=== PATIENT | male | born 1970 | race Caucasian/White ===

== ENCOUNTER 2016-12-18 22:26 | Emergency (ER) | payer OTHER ==
[~2016-12-18 22:26] MED LIST: ACT15 PO; ACT30 PO; ASPIR 8181 MG PO; ASPIRIN325 MG PO; BACO TOP; BACTROBAN2% TP; CLEOCIN HCL300 MG PO; CLINDAMYCIN HC300 MG PO; COL100 PO; ECONAZOLE NITRATE11 TOP; FLA500 PO; GLU5 PO; GLU500 PO; HIB480 TP; HIBICLENS118 ML TOP; LAC PO; LASIX20 MG; LEVAQUIN750 MG PO; LIPI20 PO; METFORMIN HCL1000 MG PO; METOPROLOL TART25 M1 GT; METOPROLOL TART25 M1 PO; NOR10 PO; NOR10T; NOR10T PO; NORCO1 TA2 PO; PROVENTIL0.09 MG/A1 INH; THERAGRAN-M1 TA4 PO; TRAMADOL HCL50 MG PO; ZES10 PO; ZOC10 PO
[2016-12-18 23:51] VITALS: BP 158/110
== END 2016-12-18 23:51 | disposition home or self-care (01) ==
LOC: ED 22:26
DX: I87.8 Other specified disorders of veins (principal); G89.29 Other chronic pain; J45.909 Unspecified asthma, uncomplicated; I10 Essential (primary) hypertension; E11.9 Type 2 diabetes mellitus without complications; Z88.0 Allergy status to penicillin; Z79.51 Long term (current) use of inhaled steroids

== ENCOUNTER 2017-01-31 22:26 | Emergency (ER) | payer OTHER ==
[2017-02-01 01:18] VITALS: BP 172/93
== END 2017-02-01 01:00 | disposition home or self-care (01) ==
LOC: ED 22:26
DX: J02.0 Streptococcal pharyngitis (principal); I83.018 Varicose veins of right lower extremity with ulcer other part of lower leg; I10 Essential (primary) hypertension; E11.9 Type 2 diabetes mellitus without complications; Z79.84 Long term (current) use of oral hypoglycemic drugs; Z88.0 Allergy status to penicillin
CPT/HCPCS: J1100

== ENCOUNTER 2017-02-07 22:32 | Emergency (ER) | payer OTHER ==
[2017-02-08 01:44] VITALS: BP 183/104
== END 2017-02-08 01:44 | disposition home or self-care (01) ==
LOC: ED 22:32
DX: N47.6 Balanoposthitis (principal); I83.008 Varicose veins of unspecified lower extremity with ulcer other part of lower leg; E66.01 Morbid (severe) obesity due to excess calories; I10 Essential (primary) hypertension; G62.9 Polyneuropathy, unspecified; Z88.0 Allergy status to penicillin

== ENCOUNTER 2017-05-25 20:03 | Emergency (ER) | payer OTHER ==
[~2017-05-25] VITALS: Ht 177.8 cm; Wt 154.2 kg
[2017-05-25 21:25] LABS: BASOPHIL % 0.3 % (0-2); PLATELET COUNT 248 x10^3mcL (130-400); RED CELL DISTRIBUTION WIDTH 14.3 % (11.5-14.5)
[2017-05-25 21:26] LABS: CALCIUM 8.2 mg/dL (8.5-10.1); CARBON DIOXIDE 28.9 mmol/L (21-32); CHLORIDE SERUM 103 mmol/L (98-107); GFR1 > 60 mL/min; GLUCOSE SERUM 210 mg/dL (74-106); POTASSIUM SERUM 3.5 mmol/L (3.5-5.1); SODIUM SERUM 139 mmol/L (136-145)
[2017-05-25 21:31] LABS: ALKALINE PHOSPHATASE 97 U/L (46-116); ALT/SGPT 24 U/L (16-63); AST/SGOT 17 U/L (15-37); BILIRUBIN TOTAL 0.48 mg/dL (0.20-1.00); TOTAL PROTEIN, SERUM 7.7 g/dL (6.4-8.2)
[2017-05-25 21:32] LABS: ALBUMIN 3.3 g/dL (3.4-5.0)
[2017-05-25 22:02] LABS: CK-MB 0.7 ng/mL (0-3.6)
[2017-05-25 23:51] VITALS: BP 159/91
== END 2017-05-25 23:51 | disposition home or self-care (01) ==
LOC: ED 20:03
PROVIDERS: Emergency Medicine
PROC: 3E033NZ Introduction of Analgesics, Hypnotics, Sedatives into Peripheral Vein, Percutaneous Approach (ICD-10-PCS; principal; 2017-05-25)
PROC: 3E033GC Introduction of Other Therapeutic Substance into Peripheral Vein, Percutaneous Approach (ICD-10-PCS; 2017-05-25)
DX: R53.1 Weakness (principal); M79.606 Pain in leg, unspecified
CPT/HCPCS: 83880; J2270; J7030; Q0092

== ENCOUNTER 2017-07-23 13:19 | Inpatient (IN) | payer OTHER ==
[~2017-07-23] VITALS: Ht 200.7 cm; Wt 143.0 kg
[2017-07-23 14:28] LABS: BASOPHIL % 0.2 % (0-2); PLATELET COUNT 297 x10^3mcL (130-400)
[2017-07-23 14:29] LABS: RED CELL DISTRIBUTION WIDTH 14.7 % (11.5-14.5)
[2017-07-23 14:36] LABS: CALCIUM 8.5 mg/dL (8.5-10.1); CARBON DIOXIDE 31.1 mmol/L (21-32); CHLORIDE SERUM 102 mmol/L (98-107); CREATININE SERUM 0.8 mg/dL (0.7-1.3); GFR1 > 60 mL/min; GLUCOSE SERUM 259 mg/dL (74-106); POTASSIUM SERUM 3.5 mmol/L (3.5-5.1); SODIUM SERUM 138 mmol/L (136-145)
[2017-07-23 14:49] LABS: ALKALINE PHOSPHATASE 98 U/L (46-116); ALT/SGPT 24 U/L (16-63); AMYLASE 47 U/L (25-115); AST/SGOT 14 U/L (15-37); BILIRUBIN TOTAL 0.3 mg/dL (0.20-1.00); HDL CHOLESTEROL 36 mg/dL (40-60); LIPASE 169 IU/L (73-393); MAGNESIUM 1.6 mg/dL (1.8-2.4); T4(THYROXINE) 6.6 ug/dL (4.7-13.3); TOTAL PROTEIN, SERUM 7.7 g/dL (6.4-8.2)
[2017-07-23 14:50] LABS: ALBUMIN 2.6 g/dL (3.4-5.0); CHOLESTEROL 116 mg/dL (<200)
[2017-07-23 15:04] LABS: microscopic required? NO
[2017-07-23] MEDS ORDERED: LISINOPRIL2.5 MG (15:08)
[2017-07-23] MEDS ORDERED: INSULIN (15:08)
[2017-07-23] MEDS ORDERED: HYDROCHLOROTHIAZ1 GM (15:08)
[2017-07-23] MEDS ORDERED: METFORMIN HYDR500 M1 (15:08)
[2017-07-23 15:12] LABS: UA SPECIFIC GRAVITY 1.025 (1.005-1.035); urine erythrocyte NEGATIVE (NEGATIVE)
[2017-07-23 15:21] LABS: AMPHETAMINE QUAL UR POSITIVE (NEG <=1000)
[2017-07-23 16:02] LABS: CHOLESTEROL/HDL RATIO 3.2
[2017-07-23 16:05] VITALS: BP 158/90
[2017-07-23 16:10] LABS: FREE T4 1.13 ng/dL (0.76-1.46); FREE THYROXINE INDEX 2.3 ug/dL (1.4-4.5); T4(THYROXINE) 6.8 ug/dL (4.7-13.3)
[2017-07-23 16:11] LABS: T3 TOTAL 0.85 ng/mL
[2017-07-23 17:16] VITALS: Ht 200.7 cm; Wt 143.0 kg
[2017-07-23 21:30] VITALS: BP 150/80
[2017-07-24 05:32] VITALS: BP 153/97
[2017-07-24 05:48] VITALS: BP 139/80
[2017-07-24 06:07] LABS: BASOPHIL % 0.3 % (0-2); PLATELET COUNT 297 x10^3mcL (130-400); RED CELL DISTRIBUTION WIDTH 14.5 % (11.5-14.5)
[2017-07-24 06:39] LABS: CALCIUM 8.8 mg/dL (8.5-10.1); CARBON DIOXIDE 33.9 mmol/L (21-32); CHLORIDE SERUM 103 mmol/L (98-107); CREATININE SERUM 0.7 mg/dL (0.7-1.3); GFR1 > 60 mL/min; GLUCOSE SERUM 157 mg/dL (74-106); MAGNESIUM 1.9 mg/dL (1.8-2.4); POTASSIUM SERUM 4.4 mmol/L (3.5-5.1); SODIUM SERUM 142 mmol/L (136-145)
[2017-07-24 09:16] VITALS: BP 171/99
[2017-07-24 12:43] VITALS: BP 153/89
[2017-07-24 17:15] VITALS: BP 179/105
[2017-07-24 20:47] VITALS: BP 160/97
[2017-07-25 06:24] LABS: BASOPHIL % 0.2 % (0-2); PLATELET COUNT 360 x10^3mcL (130-400); RED CELL DISTRIBUTION WIDTH 14.3 % (11.5-14.5)
[2017-07-25 06:45] VITALS: BP 153/99
[2017-07-25 06:51] LABS: CALCIUM 8.9 mg/dL (8.5-10.1); CARBON DIOXIDE 34.1 mmol/L (21-32); CHLORIDE SERUM 99 mmol/L (98-107); CREATININE SERUM 0.8 mg/dL (0.7-1.3); GFR1 > 60 mL/min; GLUCOSE SERUM 214 mg/dL (74-106); MAGNESIUM 1.7 mg/dL (1.8-2.4); PHOSPHOROUS 3.7 mg/dL (2.5-4.9); POTASSIUM SERUM 3.8 mmol/L (3.5-5.1); SODIUM SERUM 138 mmol/L (136-145)
[2017-07-25] MEDS ORDERED: CLEOCIN HCL300 MG PO (07:07)
[2017-07-25] MEDS ORDERED: LAC PO (07:08)
[2017-07-25] MEDS ORDERED: NOR5 PO (07:09)
[2017-07-25] MEDS ORDERED: HYDROCHLOROTH12.5 M3 PO (07:09)
[2017-07-25] MEDS ORDERED: ZES20 PO (07:10)
[2017-07-25 09:47] VITALS: BP 162/102
[2017-07-25] MEDS ORDERED: METOPROLOL TART50 MG PO (15:35)
[2017-07-25 16:00] VITALS: BP 160/90
== END 2017-07-25 18:10 | disposition home or self-care (01) | DRG 383 ==
LOC: ED 13:19 → DU 15:00
PROVIDERS: Emergency Medicine; ADMIT Family Medicine
PROC: 0JBP0ZZ Excision of Left Lower Leg Subcutaneous Tissue and Fascia, Open Approach (ICD-10-PCS; principal; 2017-07-24)
DX: L03.116 Cellulitis of left lower limb (principal); E11.42 Type 2 diabetes mellitus with diabetic polyneuropathy; E11.51 Type 2 diabetes mellitus with diabetic peripheral angiopathy without gangrene; E44.0 Moderate protein-calorie malnutrition; E11.65 Type 2 diabetes mellitus with hyperglycemia; E83.42 Hypomagnesemia; E03.9 Hypothyroidism, unspecified; F15.10 Other stimulant abuse, uncomplicated; F17.210 Nicotine dependence, cigarettes, uncomplicated; I10 Essential (primary) hypertension; L03.115 Cellulitis of right lower limb; E66.01 Morbid (severe) obesity due to excess calories; D64.9 Anemia, unspecified; I87.8 Other specified disorders of veins; Z82.49 Family history of ischemic heart disease and other diseases of the circulatory system; Z83.3 Family history of diabetes mellitus; Z88.0 Allergy status to penicillin; Z79.4 Long term (current) use of insulin; Z79.84 Long term (current) use of oral hypoglycemic drugs; Z68.33 Body mass index [BMI] 33.0-33.9, adult
CPT/HCPCS: 36600; 82962; 83880; 84439; 99406; G0480; J1644; J1815; J1956; J2270; J3475; J3490; J7030; Q0092

== ENCOUNTER 2017-09-16 16:25 | Inpatient (IN) | payer OTHER ==
[~2017-09-16] VITALS: Ht 177.8 cm; Wt 139.3 kg
[~2017-09-16 16:25] MED LIST changes: +HYDROCHLOROTH12.5 M3 PO; +HYDROCHLOROTHIAZ1 GM; +INSULIN; +LISINOPRIL2.5 MG; +METFORMIN HYDR500 M1; +METOPROLOL TART50 MG PO; +NOR5 PO; +ZES20 PO
[2017-09-16 17:00] VITALS: Ht 177.8 cm; Wt 139.3 kg
[2017-09-16 22:02] LABS: BASOPHIL % 0.3 % (0-2); PLATELET COUNT 370 x10^3mcL (130-400)
[2017-09-16 22:11] LABS: CALCIUM 8.6 mg/dL (8.5-10.1); CARBON DIOXIDE 31.2 mmol/L (21-32); CHLORIDE SERUM 98 mmol/L (98-107); CREATININE SERUM 0.8 mg/dL (0.7-1.3); GFR1 > 60 mL/min; GLUCOSE SERUM 215 mg/dL (74-106); POTASSIUM SERUM 3.6 mmol/L (3.5-5.1); SODIUM SERUM 137 mmol/L (136-145)
[2017-09-16 22:15] LABS: ALBUMIN 2.5 g/dL (3.4-5.0); ALKALINE PHOSPHATASE 107 U/L (46-116); ALT/SGPT 25 U/L (16-63); AST/SGOT 17 U/L (15-37); BILIRUBIN TOTAL 0.7 mg/dL (0.20-1.00); TOTAL PROTEIN, SERUM 7.7 g/dL (6.4-8.2)
[2017-09-16 22:18] LABS: RED CELL DISTRIBUTION WIDTH 15.8 % (11.5-14.5)
[2017-09-16 22:42] LABS: FREE T4 1.31 ng/dL (0.76-1.46); FREE THYROXINE INDEX 2.9 ug/dL (1.4-4.5); T4(THYROXINE) 8.2 ug/dL (4.7-13.3)
[2017-09-16 22:57] LABS: MAGNESIUM 1.7 mg/dL (1.8-2.4); PHOSPHOROUS 4.1 mg/dL (2.5-4.9)
[2017-09-16 22:58] LABS: CHOLESTEROL/HDL RATIO 3.7
[2017-09-16 23:08] LABS: UA SPECIFIC GRAVITY 1.025 (1.005-1.035); microscopic required? YES; urine erythrocyte NEGATIVE (NEGATIVE)
[2017-09-16 23:09] LABS: AMPHETAMINE QUAL UR POSITIVE (NEG <=1000)
[2017-09-16 23:21] VITALS: BP 128/75
[2017-09-17 01:24] LABS: T3 TOTAL 0.89 ng/mL
[2017-09-17 05:09] VITALS: BP 160/86
[2017-09-17 06:35] LABS: BASOPHIL % 0.2 % (0-2); PLATELET COUNT 352 x10^3mcL (130-400)
[2017-09-17 07:14] LABS: CALCIUM 8.4 mg/dL (8.5-10.1); CARBON DIOXIDE 27.9 mmol/L (21-32); CHLORIDE SERUM 101 mmol/L (98-107); CREATININE SERUM 0.7 mg/dL (0.7-1.3); GFR1 > 60 mL/min; GLUCOSE SERUM 165 mg/dL (74-106); MAGNESIUM 1.8 mg/dL (1.8-2.4); PHOSPHOROUS 4.1 mg/dL (2.5-4.9); POTASSIUM SERUM 3.6 mmol/L (3.5-5.1); SODIUM SERUM 138 mmol/L (136-145)
[2017-09-17 07:29] LABS: RED CELL DISTRIBUTION WIDTH 15.9 % (11.5-14.5)
[2017-09-17 07:34] LABS: IRON 25 ug/dL (65-170); TOTAL IRON BINDING CAPACITY 200 ug/dL (250-450)
[2017-09-17 09:55] VITALS: BP 146/74
[2017-09-17 17:34] VITALS: BP 168/89
[2017-09-17 18:50] VITALS: BP 155/79
[2017-09-17 20:37] VITALS: BP 153/88
[2017-09-18 05:42] VITALS: BP 159/101
[2017-09-18 09:40] VITALS: BP 166/101
[2017-09-18] MEDS ORDERED: LAC PO (09:51)
[2017-09-18] MEDS ORDERED: CLEOCIN HCL300 MG PO (09:56)
[2017-09-18] MEDS ORDERED: GLU5 PO (11:46)
[2017-09-18] MEDS ORDERED: ZES10 PO (11:46)
[2017-09-18] MEDS ORDERED: GLU500 PO (11:46)
[2017-09-18 12:00] VITALS: BP 144/71; BP 162/79
[2017-09-18 13:39] VITALS: BP 144/71
== END 2017-09-18 14:38 | disposition home or self-care (01) | DRG 383 ==
LOC: ED 16:25 → MU 21:40 → DU 21:40 → MU 09-17 06:29
PROVIDERS: Emergency Medicine; ADMIT Family Medicine
DX: L03.116 Cellulitis of left lower limb (principal); N17.0 Acute kidney failure with tubular necrosis; E43 Unspecified severe protein-calorie malnutrition; D68.69 Other thrombophilia; E11.42 Type 2 diabetes mellitus with diabetic polyneuropathy; E11.65 Type 2 diabetes mellitus with hyperglycemia; Z68.41 Body mass index [BMI] 40.0-44.9, adult; I87.8 Other specified disorders of veins; I10 Essential (primary) hypertension; J45.909 Unspecified asthma, uncomplicated; F15.10 Other stimulant abuse, uncomplicated; E66.01 Morbid (severe) obesity due to excess calories; E86.0 Dehydration; I16.0 Hypertensive urgency; E83.42 Hypomagnesemia; D64.9 Anemia, unspecified; K42.9 Umbilical hernia without obstruction or gangrene; F17.210 Nicotine dependence, cigarettes, uncomplicated; Z59.0 Homelessness; Z91.14 Patient's other noncompliance with medication regimen; Z91.19 Patient's noncompliance with other medical treatment and regimen; Z88.0 Allergy status to penicillin; Z83.3 Family history of diabetes mellitus; Z82.49 Family history of ischemic heart disease and other diseases of the circulatory system
CPT/HCPCS: 82962; 83880; 84439; J0360; J1644; J1885; J1940; J1956; J3475; J3490; J7030; Q0092

== ENCOUNTER 2018-02-04 19:27 | Emergency (ER) | payer OTHER ==
[~2018-02-04] VITALS: Ht 177.8 cm; Wt 1170.3 kg
[2018-02-04 19:35] VITALS: Ht 177.8 cm; Wt 1170.3 kg
[2018-02-04 22:38] VITALS: BP 188/90
== END 2018-02-04 22:38 | disposition home or self-care (01) ==
LOC: ED 19:27 → EDBD 19:27 → ED 22:38
DX: S80.02XA Contusion of left knee, initial encounter (principal); S40.012A Contusion of left shoulder, initial encounter; I10 Essential (primary) hypertension; Z88.0 Allergy status to penicillin; W19.XXXA Unspecified fall, initial encounter; Y93.89 Activity, other specified; Y92.89 Other specified places as the place of occurrence of the external cause; Y99.8 Other external cause status
CPT/HCPCS: 82962

== ENCOUNTER 2018-04-09 05:36 | Inpatient (IN) | payer OTHER ==
[~2018-04-09] VITALS: Ht 177.8 cm; Wt 147.0 kg
[2018-04-09 05:42] VITALS: Ht 177.8 cm; Wt 147.0 kg
[2018-04-09 06:39] LABS: microscopic required? NO
[2018-04-09 06:44] LABS: CALCIUM 7.4 mg/dL (8.5-10.1); CARBON DIOXIDE 26.8 mmol/L (21-32); CHLORIDE SERUM 103 mmol/L (98-107); CREATININE SERUM 0.9 mg/dL (0.7-1.3); GFR1 > 60 mL/min; GLUCOSE SERUM 277 mg/dL (74-106); POTASSIUM SERUM 3.5 mmol/L (3.5-5.1); SODIUM SERUM 140 mmol/L (136-145)
[2018-04-09 06:53] LABS: PLATELET COUNT 209 x10^3mcL (130-400); RED CELL DISTRIBUTION WIDTH 13.8 % (11.5-14.5)
[2018-04-09 06:56] LABS: ALKALINE PHOSPHATASE 92 U/L (46-116); ALT/SGPT 18 U/L (16-63); AST/SGOT 14 U/L (15-37); BILIRUBIN TOTAL 0.4 mg/dL (0.20-1.00); TOTAL PROTEIN, SERUM 6.8 g/dL (6.4-8.2)
[2018-04-09 07:03] LABS: UA SPECIFIC GRAVITY >=1.030 (1.005-1.035); urine erythrocyte NEGATIVE (NEGATIVE)
[2018-04-09 07:07] LABS: CK-MB < 0.5 ng/mL (0-3.6); CREATINE KINASE 155 U/L (39-308)
[2018-04-09 07:08] LABS: BASOPHIL % 0 % (0-2)
[2018-04-09 09:22] LABS: CHOLESTEROL/HDL RATIO 2.7
[2018-04-09 09:58] LABS: FREE T4 0.87 ng/dL (0.76-1.46)
[2018-04-09 10:04] VITALS: BP 164/100
[2018-04-09 10:13] LABS: T3 TOTAL 1.04 ng/mL
[2018-04-09 13:55] VITALS: BP 164/91
[2018-04-09 17:37] VITALS: BP 169/105
[2018-04-09 21:04] VITALS: BP 136/81
[2018-04-10 04:48] VITALS: BP 126/81
[2018-04-10 05:58] LABS: BASOPHIL % 0.4 % (0-2); PLATELET COUNT 188 x10^3mcL (130-400); RED CELL DISTRIBUTION WIDTH 13.4 % (11.5-14.5)
[2018-04-10 06:22] LABS: CALCIUM 8.4 mg/dL (8.5-10.1); CARBON DIOXIDE 30.1 mmol/L (21-32); CHLORIDE SERUM 104 mmol/L (98-107); CREATININE SERUM 0.7 mg/dL (0.7-1.3); GFR1 > 60 mL/min; GLUCOSE SERUM 147 mg/dL (74-106); MAGNESIUM 1.8 mg/dL (1.8-2.4); PHOSPHOROUS 3.9 mg/dL (2.5-4.9); POTASSIUM SERUM 4.1 mmol/L (3.5-5.1); SODIUM SERUM 141 mmol/L (136-145)
[2018-04-10 07:40] VITALS: BP 151/86
[2018-04-10 13:08] VITALS: BP 146/60
[2018-04-10 15:28] LABS: AMPHETAMINE QUAL UR POSITIVE (See below)
[2018-04-10 16:57] VITALS: BP 161/98
[2018-04-10 21:21] VITALS: BP 159/113
[2018-04-10 21:55] VITALS: BP 160/86
[2018-04-11] VITALS (7 sets, daily range): BP systolic 155–167; BP diastolic 78–111
[2018-04-11 06:02] LABS: BASOPHIL % 0.2 % (0-2); PLATELET COUNT 236 x10^3mcL (130-400); RED CELL DISTRIBUTION WIDTH 13.5 % (11.5-14.5)
[2018-04-11 06:30] LABS: CALCIUM 9.1 mg/dL (8.5-10.1); CARBON DIOXIDE 30.6 mmol/L (21-32); CHLORIDE SERUM 101 mmol/L (98-107); CREATININE SERUM 0.7 mg/dL (0.7-1.3); GFR1 > 60 mL/min; GLUCOSE SERUM 146 mg/dL (74-106); MAGNESIUM 1.8 mg/dL (1.8-2.4); PHOSPHOROUS 4.1 mg/dL (2.5-4.9); POTASSIUM SERUM 3.7 mmol/L (3.5-5.1); SODIUM SERUM 141 mmol/L (136-145)
[2018-04-12 05:08] VITALS: BP 175/89
[2018-04-12 06:26] LABS: BASOPHIL % 0.4 % (0-2); PLATELET COUNT 266 x10^3mcL (130-400); RED CELL DISTRIBUTION WIDTH 13.4 % (11.5-14.5)
[2018-04-12 06:41] LABS: CALCIUM 9.6 mg/dL (8.5-10.1); CARBON DIOXIDE 26.3 mmol/L (21-32); CHLORIDE SERUM 100 mmol/L (98-107); CREATININE SERUM 0.7 mg/dL (0.7-1.3); GFR1 > 60 mL/min; GLUCOSE SERUM 159 mg/dL (74-106); POTASSIUM SERUM 3.8 mmol/L (3.5-5.1); SODIUM SERUM 137 mmol/L (136-145)
[2018-04-12 07:33] VITALS: BP 140/90
[2018-04-12 08:55] VITALS: BP 140/90
[2018-04-12 10:10] VITALS: BP 140/90
[2018-04-12] MEDS ORDERED: GLU500 PO (11:22)
[2018-04-12] MEDS ORDERED: LEVAQUIN750 MG PO (11:29)
[2018-04-12] MEDS ORDERED: HYD25 PO (13:59)
[2018-04-12] MEDS ORDERED: ZES20 PO (13:59)
== END 2018-04-12 15:00 | disposition home or self-care (01) | DRG 383 ==
LOC: ED 05:36 → EDBD 08:37 → DU 08:37
PROVIDERS: Emergency Medicine; Family Medicine
DX: L03.116 Cellulitis of left lower limb (principal); E11.40 Type 2 diabetes mellitus with diabetic neuropathy, unspecified; E44.0 Moderate protein-calorie malnutrition; E66.01 Morbid (severe) obesity due to excess calories; B02.9 Zoster without complications; E11.65 Type 2 diabetes mellitus with hyperglycemia; S81.802A Unspecified open wound, left lower leg, initial encounter; L03.115 Cellulitis of right lower limb; E83.51 Hypocalcemia; I10 Essential (primary) hypertension; F15.10 Other stimulant abuse, uncomplicated; F17.210 Nicotine dependence, cigarettes, uncomplicated; K42.9 Umbilical hernia without obstruction or gangrene; X58.XXXA Exposure to other specified factors, initial encounter; Z88.0 Allergy status to penicillin; Z68.42 Body mass index [BMI] 45.0-49.9, adult; Z82.49 Family history of ischemic heart disease and other diseases of the circulatory system; Z83.3 Family history of diabetes mellitus; Z59.0 Homelessness; Y93.89 Activity, other specified; Y92.89 Other specified places as the place of occurrence of the external cause; Y99.8 Other external cause status
CPT/HCPCS: 82962; 83880; 84439; J1644; J3370; J3490; J7030; Q0092

== ENCOUNTER 2018-05-22 13:49 | Emergency (ER) | payer OTHER ==
[~2018-05-22] VITALS: Ht 177.8 cm; Wt 136.1 kg
[~2018-05-22 13:49] MED LIST changes: +HYD25 PO
[2018-05-22 13:55] VITALS: Ht 177.8 cm; Wt 136.1 kg
[2018-05-22 17:49] VITALS: BP 142/92
== END 2018-05-22 17:49 | disposition home or self-care (01) ==
LOC: ED 13:49
DX: S09.90XA Unspecified injury of head, initial encounter (principal); S50.12XA Contusion of left forearm, initial encounter; S90.511A Abrasion, right ankle, initial encounter; I10 Essential (primary) hypertension; E11.40 Type 2 diabetes mellitus with diabetic neuropathy, unspecified; J45.909 Unspecified asthma, uncomplicated; Z88.0 Allergy status to penicillin; Y04.8XXA Assault by other bodily force, initial encounter; Y93.89 Activity, other specified; Y92.89 Other specified places as the place of occurrence of the external cause; Y99.8 Other external cause status
CPT/HCPCS: 82962

== ENCOUNTER 2018-06-22 09:36 | Emergency (ER) | payer OTHER ==
[~2018-06-22] VITALS: Ht 177.8 cm; Wt 144.2 kg
[2018-06-22 09:46] VITALS: BP 124/103
== END 2018-06-22 12:22 | disposition home or self-care (01) ==
LOC: ED 09:36
DX: L02.413 Cutaneous abscess of right upper limb (principal); J45.909 Unspecified asthma, uncomplicated; I10 Essential (primary) hypertension; E11.9 Type 2 diabetes mellitus without complications; G90.09 Other idiopathic peripheral autonomic neuropathy; Z88.0 Allergy status to penicillin
CPT/HCPCS: J1885; J2001

== ENCOUNTER 2018-08-19 21:20 | Emergency (ER) | payer OTHER | END 2018-08-19 22:18 | disposition other institution (70) | LOC: ED 21:20 | DX: Z02.89 Encounter for other administrative examinations (principal) ==

== ENCOUNTER 2018-08-19 21:20 | Emergency (ER) | payer OTHER ==
[~2018-08-19] VITALS: Ht 177.8 cm; Wt 145.1 kg
[2018-08-19 21:30] VITALS: Ht 177.8 cm; Wt 145.1 kg
[2018-08-19 22:18] VITALS: BP 142/100
== END 2018-08-19 22:18 | disposition other institution (70) ==
LOC: ED 21:20
DX: J45.909 Unspecified asthma, uncomplicated (principal); I10 Essential (primary) hypertension; E11.40 Type 2 diabetes mellitus with diabetic neuropathy, unspecified; Z88.0 Allergy status to penicillin

== ENCOUNTER 2020-03-05 21:08 | Inpatient (IN) | payer OTHER ==
[~2020-03-05] VITALS: Ht 175.3 cm; Wt 99.8 kg
[2020-03-05 21:09] VITALS: Ht 175.3 cm; Wt 99.8 kg
[2020-03-05 21:57] LABS: BASOPHIL % 0.3 % (0-2); PLATELET COUNT 174 x10^3mcL (130-400); RED CELL DISTRIBUTION WIDTH 13.9 % (11.5-14.5)
[2020-03-05 22:05] LABS: CALCIUM 8.6 mg/dL (8.5-10.1); CARBON DIOXIDE 27.6 mmol/L (21-32); CHLORIDE SERUM 101 mmol/L (98-107); CREATININE SERUM 1.2 mg/dL (0.7-1.3); GFR1 > 60 mL/min; GLUCOSE SERUM 235 mg/dL (74-106); POTASSIUM SERUM 3.6 mmol/L (3.5-5.1); SODIUM SERUM 137 mmol/L (136-145)
[2020-03-05 22:10] LABS: ALBUMIN 3.4 g/dL (3.4-5.0); ALKALINE PHOSPHATASE 83 U/L (46-116); ALT/SGPT 32 U/L (16-63); AST/SGOT 18 U/L (15-37); BILIRUBIN TOTAL 0.41 mg/dL (0.20-1.00); TOTAL PROTEIN, SERUM 7.1 g/dL (6.4-8.2)
[2020-03-05 23:38] LABS: UA SPECIFIC GRAVITY 1.015 (1.005-1.035); microscopic required? YES; urine erythrocyte 1+ (NEGATIVE)
[2020-03-05 23:47] LABS: C REACTIVE PROTEIN 7.3 mg/dL (<=0.9)
[2020-03-06 00:39] VITALS: BP 160/81
[2020-03-06 01:07] LABS: CHOLESTEROL/HDL RATIO 2.6
[2020-03-06 01:46] LABS: T3 TOTAL 0.73 ng/mL
[2020-03-06] MEDS ORDERED: GABAPENTIN300 M4 PO (02:01)
[2020-03-06] MEDS ORDERED: ATORVASTATIN CA10 M1 PO (02:01)
[2020-03-06] MEDS ORDERED: METFORMIN HCL1000 MG PO (02:02)
[2020-03-06] MEDS ORDERED: LISINOPRIL20 MG PO (02:02)
[2020-03-06 02:03] LABS: FREE T4 0.97 ng/dL (0.76-1.46); FREE THYROXINE INDEX 2.1 ug/dL (1.4-4.5); T4(THYROXINE) 6.5 ug/dL (4.7-13.3)
[2020-03-06 05:47] VITALS: BP 142/69
[2020-03-06 07:27] LABS: BASOPHIL % 0.1 % (0-2); PLATELET COUNT 169 x10^3mcL (130-400); RED CELL DISTRIBUTION WIDTH 14.1 % (11.5-14.5)
[2020-03-06 07:38] LABS: CALCIUM 8.4 mg/dL (8.5-10.1); CARBON DIOXIDE 27.6 mmol/L (21-32); CHLORIDE SERUM 103 mmol/L (98-107); CREATININE SERUM 0.8 mg/dL (0.7-1.3); GFR1 > 60 mL/min; GLUCOSE SERUM 192 mg/dL (74-106); MAGNESIUM 1.7 mg/dL (1.8-2.4); PHOSPHOROUS 2.8 mg/dL (2.5-4.9); POTASSIUM SERUM 3.6 mmol/L (3.5-5.1); SODIUM SERUM 139 mmol/L (136-145)
[2020-03-06 08:30] VITALS: BP 147/77
[2020-03-06 11:03] LABS: AMPHETAMINE QUAL UR POSITIVE (See below)
[2020-03-06 12:31] VITALS: BP 154/75
[2020-03-06 17:31] VITALS: BP 148/79
[2020-03-06 21:59] VITALS: BP 126/61
[2020-03-07 05:46] VITALS: BP 120/68
[2020-03-07 07:11] LABS: CALCIUM 8.7 mg/dL (8.5-10.1); CARBON DIOXIDE 29.1 mmol/L (21-32); CHLORIDE SERUM 98 mmol/L (98-107); CREATININE SERUM 0.7 mg/dL (0.7-1.3); GFR1 > 60 mL/min; GLUCOSE SERUM 167 mg/dL (74-106); MAGNESIUM 2.1 mg/dL (1.8-2.4); PHOSPHOROUS 2.1 mg/dL (2.5-4.9); POTASSIUM SERUM 3.8 mmol/L (3.5-5.1); SODIUM SERUM 134 mmol/L (136-145)
[2020-03-07 07:31] LABS: PLATELET COUNT 175 x10^3mcL (130-400); RED CELL DISTRIBUTION WIDTH 13.7 % (11.5-14.5)
[2020-03-07 07:39] LABS: BASOPHIL % 0 % (0-2)
[2020-03-07 07:46] LABS: C REACTIVE PROTEIN 27.6 mg/dL (<=0.9)
[2020-03-07 09:12] VITALS: BP 140/60
[2020-03-07 13:22] VITALS: BP 158/77
[2020-03-07 18:23] VITALS: BP 153/76
[2020-03-07 21:00] VITALS: BP 124/64
[2020-03-08 05:21] VITALS: BP 155/86
[2020-03-08 06:41] LABS: PLATELET COUNT 200 x10^3mcL (130-400); RED CELL DISTRIBUTION WIDTH 13.9 % (11.5-14.5)
[2020-03-08 06:51] LABS: CALCIUM 8.6 mg/dL (8.5-10.1); CARBON DIOXIDE 31.1 mmol/L (21-32); CHLORIDE SERUM 98 mmol/L (98-107); CREATININE SERUM 0.8 mg/dL (0.7-1.3); GFR1 > 60 mL/min; GLUCOSE SERUM 153 mg/dL (74-106); MAGNESIUM 2.3 mg/dL (1.8-2.4); POTASSIUM SERUM 3.8 mmol/L (3.5-5.1); SODIUM SERUM 136 mmol/L (136-145)
[2020-03-08 07:06] LABS: BASOPHIL % 0 % (0-2)
[2020-03-08 07:21] LABS: C REACTIVE PROTEIN 24.6 mg/dL (<=0.9)
[2020-03-08 08:22] VITALS: BP 155/88
[2020-03-08 13:11] VITALS: BP 159/80
[2020-03-08 18:24] VITALS: BP 155/80
[2020-03-08 21:20] VITALS: BP 145/72
[2020-03-08 21:22] VITALS: BP 145/72
[2020-03-09 06:06] VITALS: BP 163/79
[2020-03-09 07:22] LABS: BASOPHIL % 0.2 % (0-2); PLATELET COUNT 212 x10^3mcL (130-400); RED CELL DISTRIBUTION WIDTH 13.5 % (11.5-14.5)
[2020-03-09 07:29] LABS: CARBON DIOXIDE 31.1 mmol/L (21-32); CHLORIDE SERUM 102 mmol/L (98-107); CREATININE SERUM 0.7 mg/dL (0.7-1.3); GFR1 > 60 mL/min; GLUCOSE SERUM 173 mg/dL (74-106); MAGNESIUM 2.2 mg/dL (1.8-2.4); PHOSPHOROUS 3.2 mg/dL (2.5-4.9); SODIUM SERUM 138 mmol/L (136-145)
[2020-03-09 07:39] LABS: C REACTIVE PROTEIN 12.9 mg/dL (<=0.9)
[2020-03-09 08:38] VITALS: BP 141/78
[2020-03-09] MEDS ORDERED: LAC PO (10:55)
[2020-03-09] MEDS ORDERED: KEFLEX500 M1 PO (10:55)
[2020-03-09 11:19] VITALS: BP 141/78
== END 2020-03-09 12:10 | disposition home or self-care (01) | DRG 720 ==
LOC: ED 21:08 → DU 23:12
PROVIDERS: Emergency Medicine; Internal Medicine; ADMIT Family Medicine; ATTEND Family Medicine
DX: A41.9 Sepsis, unspecified organism (principal); J96.01 Acute respiratory failure with hypoxia; J18.9 Pneumonia, unspecified organism; E11.40 Type 2 diabetes mellitus with diabetic neuropathy, unspecified; I10 Essential (primary) hypertension; Z83.3 Family history of diabetes mellitus; Z82.49 Family history of ischemic heart disease and other diseases of the circulatory system; F17.200 Nicotine dependence, unspecified, uncomplicated; Z88.0 Allergy status to penicillin; Z59.0 Homelessness; E11.65 Type 2 diabetes mellitus with hyperglycemia; E66.01 Morbid (severe) obesity due to excess calories; Z68.29 Body mass index [BMI] 29.0-29.9, adult; Z71.3 Dietary counseling and surveillance; L03.116 Cellulitis of left lower limb; Z20.828 Contact with and (suspected) exposure to other viral communicable diseases
CPT/HCPCS: 36600; 82962; 83880; 84439; 85378; 87804; G0378; J0456; J1644; J1650; J1940; J1956; J3370; J7030; J7050; Q0092; U0003-CS

== ENCOUNTER 2020-03-23 22:10 | Emergency (ER) | payer OTHER ==
[~2020-03-23] VITALS: Ht 177.8 cm; Wt 141.1 kg
[~2020-03-23 22:10] MED LIST changes: +ATORVASTATIN CA10 M1 PO; +GABAPENTIN300 M4 PO; +KEFLEX500 M1 PO; +LISINOPRIL20 MG PO
[2020-03-23 22:16] VITALS: Ht 177.8 cm; Wt 141.1 kg
[2020-03-24 03:38] VITALS: BP 157/86
== END 2020-03-24 03:38 | disposition home or self-care (01) ==
LOC: ED 22:10
DX: L03.116 Cellulitis of left lower limb (principal); I87.8 Other specified disorders of veins; I10 Essential (primary) hypertension; E11.40 Type 2 diabetes mellitus with diabetic neuropathy, unspecified; Z88.0 Allergy status to penicillin
CPT/HCPCS: 82962; J1885; Q0092

== ENCOUNTER 2020-05-22 23:47 | Inpatient (IN) | payer OTHER, SELFPAY ==
[~2020-05-22] VITALS: Ht 177.8 cm; Wt 140.9 kg
[2020-05-22 23:50] VITALS: Ht 177.8 cm; Wt 140.9 kg
[2020-05-23 00:41] LABS: BASOPHIL % 0.4 % (0-2); PLATELET COUNT 186 x10^3mcL (130-400); RED CELL DISTRIBUTION WIDTH 13.8 % (11.5-14.5)
[2020-05-23 01:09] LABS: CALCIUM 8.3 mg/dL (8.5-10.1); CARBON DIOXIDE 27.7 mmol/L (21-32); CHLORIDE SERUM 102 mmol/L (98-107); CREATININE SERUM 0.8 mg/dL (0.7-1.3); GFR1 > 60 mL/min; GLUCOSE SERUM 192 mg/dL (74-106); SODIUM SERUM 138 mmol/L (136-145)
[2020-05-23 01:13] LABS: ALKALINE PHOSPHATASE 80 U/L (46-116); ALT/SGPT 32 U/L (16-63); AST/SGOT 30 U/L (15-37); BILIRUBIN TOTAL 0.2 mg/dL (0.20-1.00); TOTAL PROTEIN, SERUM 6.8 g/dL (6.4-8.2)
[2020-05-23 01:19] LABS: ALBUMIN 2.7 g/dL (3.4-5.0)
--- NOTE | 2020-05-23 04:48 | NUR ---
REPORT CALLED TO THE FLOOR - GIVEN TO GLEN WALTERS.
[2020-05-23 05:12] LABS: microscopic required? NO
[2020-05-23 05:22] LABS: urine erythrocyte NEGATIVE (NEGATIVE)
[2020-05-23 05:29] VITALS: BP 152/96
[2020-05-23 05:38] LABS: AMPHETAMINE QUAL UR POSITIVE (See below)
[2020-05-23 05:40] VITALS: BP 152/96
--- NOTE | 2020-05-23 05:42 | NUR ---
RECEIVED PATIENT FROM ED VIA RNEY, ACCOMPANY BY NURSE. PATIENT WALKED FROM [facility] TO BED WITHOUT DME. PATIENT IS AAOX4 DENIES PROCTOR/DIZZINESS. BREATHING EVEN AND UNLABORED ON RA WITH NO SOB NOTED, O2SAT 97%. PATIENT CC DRY COUGH AND FEVER AT HOME, AFEBRILE AT THIS TIME. PATIENT ON TELE 28 SR ON MONITOR, DENIES CHEST PAIN/PRESSURE. IV RFA PATENT, FLUSHED WELL WITH DRESSING CDI. PATIENT ABD SOFT/ROUND, OBESE WITH ACTIVE BOWEL SOUNDS. DENIES ABD PAIN/N/V. PALPABLE PULSES, NO EDEAM NOTED. BLE DRY FLAKY SKIN. PATIENT REFUSED TO CONTINUE WITH SKIN ASSESSMENT AT THIS TIME. PATIENT REPORTS BEING EXPOSED TO FAMILY MEMEBER WHO IS TESTED POSITIVE WITH COVID 19. COVID 19 SWAB AND SENT TO LAB. CALL BUTTON WITHIN REACH. ORIENTED TO ROOM. DROPLET PRECAUTIONS. SAFETY PRECAUTIONS IN PLACE. WILL MONITOR.
--- NOTE | 2020-05-23 06:45 | NUR ---
DR MCGILL MADE AWARE PATIENT HR TO 35BPM FOR A FEW SECONDS AND WENT UP TO 70S, TWO EPISODES OF LOW HR IN THE LAST HOUR. NO NEW ORDERS. WILL CONTINUE TO MONITOR.
--- NOTE | 2020-05-23 07:19 | NUR ---
ENDORSED CARE TO JOVANNA WALTERS, ALL QUESTIONS ADDRESSED.
--- NOTE | 2020-05-23 08:00 | NUR ---
RECEIVED REPORT FROM [facility]. PATIENT A&OX4, ROOM AIR, RESTING COMFORTABLY IN BED. PATIENT DENIES SOB AND WHATLEY. WILL CONTINUE TO MONITOR.
[2020-05-23 08:58] VITALS: BP 137/87
[2020-05-23 09:02] LABS: MAGNESIUM 1.9 mg/dL (1.8-2.4)
[2020-05-23 09:03] LABS: CHOLESTEROL/HDL RATIO 4.4
--- NOTE | 2020-05-23 12:25 | NUR ---
PATIENT REMAINS A&OX4, NO RESPIRATORY DISTRESS NOTED OR REPORTED. PATIENT ON ROOM AIR, COVID RESULT PENDING. NO OTHER COMPLAINTS. WILL CONTINUE TO MONITOR.
[2020-05-23 13:43] VITALS: BP 138/80
[2020-05-23 16:51] VITALS: BP 125/65
--- NOTE | 2020-05-23 18:27 | NUR ---
PATIENT ADMITTED FOR R/O COVID, TEST PENDING. PATIENT A&OX4, SLEEPY BUT AROUSABLE, ROOM AIR, DENIES RESPIRATORY DISTRESS, TOLEARTING DIET, VOIDING WELL, UP AD ANTHONY, FINGERSTICKS AC/HS WITH INSULIN COVERAGE PER SLIDING SCALE. NSR ON THE MONITOR. CALL LIGHT AND BEDSIDE TABLE WITHIN REACH. NEEDS ATTENDED.
--- NOTE | 2020-05-23 19:45 | NUR ---
PT RECIEVED AAO REG RESP NO SOB R/A SAT 98%,ABDO IS SOFT WITH ACTIVE BOWEL SOUNDS,PT ON TELE MONITOR AND IN NSR NO ECTOPY OR CHEST PAIN AT THIS TIME, PT ON TELE MONITOR AND IN NSR NO ECTOPY OR CHEST PAIN AT THIS TIME,CALL LIGHT EASY REACHED AND WILL CONTINUE TO MONITOR.
[2020-05-23 21:05] VITALS: BP 148/78
--- NOTE | 2020-05-24 01:30 | NUR ---
PT RESTING SOUNDLY AND WILL CONTINE TO MONITOR.
[2020-05-24 05:57] VITALS: BP 154/85
--- NOTE | 2020-05-24 06:29 | NUR ---
PT HAD A RESTING NIGHT NO CHANGE AT THIS TIME,WILL CONTINUE TO MONITOR.
--- NOTE | 2020-05-24 07:00 | NUR ---
RECIEVED PT RESTING IN BED WITH NO C/O PAIN OR DISTRESS. A/O X4 WITH NO PROCTOR OR DIZZINESS. TELE #28 CONNECTED TO PT AND HE DENIES ANY CP OR PRESSURE.PT FOUND ON RA AND DENIES ANY SOB, LUNGS DIMINISHED SOUNDS.PT AMBULATORY AND SKIN CDI. RFA IV CDI AND PATENT. SAFETY PRECAUTIONS IN PLACE, CALL LIGHT WITHIN REACH, WILL MONITOR.
[2020-05-24 07:09] LABS: BASOPHIL % 0.3 % (0-2); PLATELET COUNT 214 x10^3mcL (130-400); RED CELL DISTRIBUTION WIDTH 13.6 % (11.5-14.5)
[2020-05-24 07:24] LABS: ALKALINE PHOSPHATASE 92 U/L (46-116); ALT/SGPT 28 U/L (16-63); AST/SGOT 19 U/L (15-37); BILIRUBIN TOTAL 0.29 mg/dL (0.20-1.00); C REACTIVE PROTEIN 3.4 mg/dL (<=0.9); CALCIUM 8.4 mg/dL (8.5-10.1); CARBON DIOXIDE 29.8 mmol/L (21-32); CHLORIDE SERUM 101 mmol/L (98-107); CREATININE SERUM 0.9 mg/dL (0.7-1.3); GFR1 > 60 mL/min; GLUCOSE SERUM 263 mg/dL (74-106); MAGNESIUM 2.1 mg/dL (1.8-2.4); POTASSIUM SERUM 3.9 mmol/L (3.5-5.1); SODIUM SERUM 137 mmol/L (136-145)
[2020-05-24 07:25] LABS: ALBUMIN 2.7 g/dL (3.4-5.0)
[2020-05-24] MEDS ORDERED: GLU5 PO (08:46)
[2020-05-24] MEDS ORDERED: LEVAQUIN500 M1 PO (08:47)
[2020-05-24 10:31] VITALS: BP 130/76
[2020-05-24] MEDS ORDERED: LISINOPRIL20 MG PO (16:41)
[2020-05-24] MEDS ORDERED: BLOOD LANCETS1 EACH TOP (16:41)
[2020-05-24] MEDS ORDERED: METER-CHECK1 EACH MC (16:41)
[2020-05-24] MEDS ORDERED: EASY COMFORT ALCO70% TOP (16:41)
[2020-05-24] MEDS ORDERED: GLUCOCARD 01 S1 EACH MC (16:41)
[2020-05-24] MEDS ORDERED: GLU500 PO (16:41)
--- NOTE | 2020-05-24 17:10 | NUR ---
PT STABLE TO DISCHARGE PER MD ORDER. ALL DISCHARGE INSTRUCTIONS, EDUCATION, AND PRESCRIPTIONS GIVEN TO PT AND HE VERBALIZES UNDERSTANDING. TELE BOX RETURNED TO MT. IV REMOVED WITH CATHETER INTACT, NO REDNESS OR INFLAMMATION NOTED TO SITE. ID BANDS REMOVED FROM PT. PT ESCORTED DOWN TO LOBBY VIA WC BY CRISTINA. ALL PERSONAL BELONGINGS IN HAND.
== END 2020-05-24 17:10 | disposition home or self-care (01) | DRG 137 ==
LOC: ED 23:47 → DU 05-23 03:51
PROVIDERS: Emergency Medicine; ADMIT Student in an Organized Health Care Education/Training Program; ATTEND Student in an Organized Health Care Education/Training Program
DX: U07.1 COVID-19 (principal); J96.01 Acute respiratory failure with hypoxia; E43 Unspecified severe protein-calorie malnutrition; E11.40 Type 2 diabetes mellitus with diabetic neuropathy, unspecified; I10 Essential (primary) hypertension; J45.909 Unspecified asthma, uncomplicated; F17.210 Nicotine dependence, cigarettes, uncomplicated; J12.89 Other viral pneumonia; Z68.41 Body mass index [BMI] 40.0-44.9, adult
CPT/HCPCS: 36600; 82962; 83880; 85378; G0378; J0456; J0696; J1100; J1644; J1815; J3535; J7050; Q0092; U0003-CS

== ENCOUNTER 2020-06-03 18:03 | Inpatient (IN) | payer OTHER, SELFPAY ==
[~2020-06-03] VITALS: Ht 177.8 cm; Wt 138.5 kg
[~2020-06-03 18:03] MED LIST changes: +BLOOD LANCETS1 EACH TOP; +EASY COMFORT ALCO70% TOP; +GLUCOCARD 01 S1 EACH MC; +LEVAQUIN500 M1 PO; +METER-CHECK1 EACH MC
[2020-06-03 19:43] LABS: BASOPHIL % 0.4 % (0-2); PLATELET COUNT 291 x10^3mcL (130-400); RED CELL DISTRIBUTION WIDTH 14.4 % (11.5-14.5)
[2020-06-03 19:58] LABS: CALCIUM 9.1 mg/dL (8.5-10.1); CARBON DIOXIDE 25.3 mmol/L (21-32); CHLORIDE SERUM 103 mmol/L (98-107); CREATININE SERUM 1.1 mg/dL (0.7-1.3); GFR1 > 60 mL/min; GLUCOSE SERUM 306 mg/dL (74-106); SODIUM SERUM 138 mmol/L (136-145)
[2020-06-03 20:15] LABS: ALKALINE PHOSPHATASE 98 U/L (46-116); ALT/SGPT 25 U/L (16-63); AST/SGOT 21 U/L (15-37); BILIRUBIN TOTAL 0.3 mg/dL (0.20-1.00); LACTIC DEHYDROGENASE (LDH) 284 U/L (100-190); TOTAL PROTEIN, SERUM 7.5 g/dL (6.4-8.2)
[2020-06-03 20:16] LABS: ALBUMIN 3.1 g/dL (3.4-5.0)
[2020-06-03 20:33] LABS: UA SPECIFIC GRAVITY >=1.030 (1.005-1.035); microscopic required? YES; urine erythrocyte NEGATIVE (NEGATIVE)
[2020-06-03 21:48] LABS: CHOLESTEROL/HDL RATIO 5.5; MAGNESIUM 1.7 mg/dL (1.8-2.4); PHOSPHOROUS 3.7 mg/dL (2.5-4.9)
[2020-06-03 21:56] LABS: AMPHETAMINE QUAL UR POSITIVE (See below)
[2020-06-03 23:11] VITALS: BP 148/106
[2020-06-03 23:16] VITALS: Ht 177.8 cm; Wt 138.5 kg
[2020-06-03 23:44] VITALS: BP 135/96
[2020-06-04 06:28] VITALS: BP 139/94
[2020-06-04 07:34] LABS: BASOPHIL % 0.5 % (0-2); PLATELET COUNT 234 x10^3mcL (130-400)
[2020-06-04 07:57] VITALS: BP 108/81
[2020-06-04 08:34] LABS: CALCIUM 9.1 mg/dL (8.5-10.1); CARBON DIOXIDE 28.1 mmol/L (21-32); CHLORIDE SERUM 106 mmol/L (98-107); CREATININE SERUM 0.9 mg/dL (0.7-1.3); GFR1 > 60 mL/min; GLUCOSE SERUM 226 mg/dL (74-106); MAGNESIUM 1.6 mg/dL (1.8-2.4); PHOSPHOROUS 4.5 mg/dL (2.5-4.9); POTASSIUM SERUM 4.5 mmol/L (3.5-5.1); SODIUM SERUM 142 mmol/L (136-145)
[2020-06-04 11:52] VITALS: BP 130/97
[2020-06-04 16:01] VITALS: BP 117/67
[2020-06-04 20:24] VITALS: BP 133/99
[2020-06-05] VITALS (8 sets, daily range): BP systolic 123–147; BP diastolic 57–103
[2020-06-05 07:19] LABS: C REACTIVE PROTEIN 3.8 mg/dL (<=0.9); CALCIUM 9.2 mg/dL (8.5-10.1); CARBON DIOXIDE 31.3 mmol/L (21-32); CHLORIDE SERUM 102 mmol/L (98-107); CREATININE SERUM 0.9 mg/dL (0.7-1.3); GFR1 > 60 mL/min; GLUCOSE SERUM 266 mg/dL (74-106); MAGNESIUM 1.8 mg/dL (1.8-2.4); PHOSPHOROUS 3.9 mg/dL (2.5-4.9); POTASSIUM SERUM 3.8 mmol/L (3.5-5.1); SODIUM SERUM 140 mmol/L (136-145)
[2020-06-05 07:25] LABS: BASOPHIL % 0.2 % (0-2); PLATELET COUNT 280 x10^3mcL (130-400); RED CELL DISTRIBUTION WIDTH 13.5 % (11.5-14.5)
[2020-06-06 04:43] VITALS: BP 133/98
[2020-06-06 07:38] LABS: BASOPHIL % 0.1 % (0-2); PLATELET COUNT 256 x10^3mcL (130-400)
[2020-06-06 08:06] LABS: C REACTIVE PROTEIN 1.7 mg/dL (<=0.9); CALCIUM 9.1 mg/dL (8.5-10.1); CARBON DIOXIDE 29.5 mmol/L (21-32); CHLORIDE SERUM 104 mmol/L (98-107); CREATININE SERUM 0.8 mg/dL (0.7-1.3); GFR1 > 60 mL/min; GLUCOSE SERUM 201 mg/dL (74-106); MAGNESIUM 1.9 mg/dL (1.8-2.4); PHOSPHOROUS 4.4 mg/dL (2.5-4.9); POTASSIUM SERUM 4.1 mmol/L (3.5-5.1); SODIUM SERUM 141 mmol/L (136-145)
[2020-06-06 08:25] VITALS: BP 170/90
[2020-06-06 11:59] VITALS: BP 170/99
[2020-06-06 16:35] VITALS: BP 128/73
[2020-06-06 20:13] VITALS: BP 154/100
[2020-06-07 05:12] VITALS: BP 178/100
[2020-06-07 07:26] LABS: BASOPHIL % 0.2 % (0-2); PLATELET COUNT 263 x10^3mcL (130-400); RED CELL DISTRIBUTION WIDTH 14.2 % (11.5-14.5)
[2020-06-07 07:47] LABS: CALCIUM 8.8 mg/dL (8.5-10.1); CHLORIDE SERUM 103 mmol/L (98-107); CREATININE SERUM 0.8 mg/dL (0.7-1.3); GFR1 > 60 mL/min; GLUCOSE SERUM 240 mg/dL (74-106); MAGNESIUM 1.8 mg/dL (1.8-2.4); POTASSIUM SERUM 3.7 mmol/L (3.5-5.1); SODIUM SERUM 139 mmol/L (136-145)
[2020-06-07 08:20] VITALS: BP 156/100
[2020-06-07 11:58] VITALS: BP 149/87
[2020-06-07 17:07] VITALS: BP 154/84
[2020-06-07 21:26] VITALS: BP 167/100
[2020-06-07 23:30] VITALS: BP 164/86
[2020-06-08 06:38] VITALS: BP 173/97
[2020-06-08 07:28] LABS: BASOPHIL % 0.1 % (0-2); PLATELET COUNT 260 x10^3mcL (130-400); RED CELL DISTRIBUTION WIDTH 14.1 % (11.5-14.5)
[2020-06-08 07:35] LABS: CALCIUM 8.9 mg/dL (8.5-10.1); CARBON DIOXIDE 27.4 mmol/L (21-32); CHLORIDE SERUM 103 mmol/L (98-107); CREATININE SERUM 0.8 mg/dL (0.7-1.3); GFR1 > 60 mL/min; GLUCOSE SERUM 171 mg/dL (74-106); POTASSIUM SERUM 3.6 mmol/L (3.5-5.1); SODIUM SERUM 138 mmol/L (136-145)
[2020-06-08 08:52] VITALS: BP 176/99
[2020-06-08 13:30] VITALS: BP 176/89
[2020-06-08] MEDS ORDERED: LIPI20 PO (16:01)
[2020-06-08] MEDS ORDERED: NOR5 PO (16:01)
[2020-06-08] MEDS ORDERED: ELIQUIS5 MG PO ×2 (16:07→16:08)
[2020-06-08 16:19] VITALS: BP 176/89
== END 2020-06-08 17:01 | disposition home or self-care (01) | DRG 137 ==
LOC: ED 18:03 → DU 20:44
PROVIDERS: Internal Medicine; Specialist; ADMIT Internal Medicine; ATTEND Internal Medicine
PROC: XW13325 Transfusion of Convalescent Plasma (Nonautologous) into Peripheral Vein, Percutaneous Approach, New Technology Group 5 (ICD-10-PCS; principal; 2020-06-05)
DX: U07.1 COVID-19 (principal); I26.99 Other pulmonary embolism without acute cor pulmonale; I21.A1 Myocardial infarction type 2; J96.01 Acute respiratory failure with hypoxia; E44.1 Mild protein-calorie malnutrition; I27.20 Pulmonary hypertension, unspecified; J12.89 Other viral pneumonia; E11.40 Type 2 diabetes mellitus with diabetic neuropathy, unspecified; E11.65 Type 2 diabetes mellitus with hyperglycemia; F15.10 Other stimulant abuse, uncomplicated; D64.9 Anemia, unspecified; J45.909 Unspecified asthma, uncomplicated; G47.33 Obstructive sleep apnea (adult) (pediatric); M94.0 Chondrocostal junction syndrome [Tietze]; F17.210 Nicotine dependence, cigarettes, uncomplicated; E78.5 Hyperlipidemia, unspecified; E66.9 Obesity, unspecified; Z79.899 Other long term (current) drug therapy; Z79.84 Long term (current) use of oral hypoglycemic drugs; Z79.891 Long term (current) use of opiate analgesic; Z88.0 Allergy status to penicillin; Z83.3 Family history of diabetes mellitus; Z82.49 Family history of ischemic heart disease and other diseases of the circulatory system; Z56.0 Unemployment, unspecified; Z59.0 Homelessness; Z68.42 Body mass index [BMI] 45.0-49.9, adult
CPT/HCPCS: 36600; 82962; 83880; 85378; G0378; J1100; J1644; J1650; J1815; J2060; J3535; J7040; Q0092; Q9967; U0003-CS

== ENCOUNTER 2020-11-11 18:42 | Emergency (ER) | payer OTHER, SELFPAY ==
[~2020-11-11] VITALS: Ht 177.8 cm; Wt 140.6 kg
[~2020-11-11 18:42] MED LIST changes: +ELIQUIS5 MG PO
[2020-11-11 19:03] VITALS: Ht 177.8 cm; Wt 140.6 kg
[2020-11-11 19:50] LABS: CALCIUM 8.4 mg/dL (8.5-10.1); CARBON DIOXIDE 27.4 mmol/L (21-32); CHLORIDE SERUM 97 mmol/L (98-107); GFR1 > 60 mL/min; GLUCOSE SERUM 378 mg/dL (74-106); POTASSIUM SERUM 3.6 mmol/L (3.5-5.1); SODIUM SERUM 132 mmol/L (136-145)
[2020-11-11 19:54] LABS: ALKALINE PHOSPHATASE 115 U/L (46-116); ALT/SGPT 37 U/L (16-63); AST/SGOT 18 U/L (15-37); BILIRUBIN TOTAL 0.49 mg/dL (0.20-1.00); TOTAL PROTEIN, SERUM 7.4 g/dL (6.4-8.2)
[2020-11-11 20:00] LABS: BASOPHIL % 0.1 % (0.2-1.5); PLATELET COUNT 232 x10^3mcL (152-348); RED CELL DISTRIBUTION WIDTH 13.6 % (12.1-16.2)
[2020-11-11 20:05] LABS: ALBUMIN 2.6 g/dL (3.4-5.0)
[2020-11-11 21:20] LABS: microscopic required? YES; urine erythrocyte 1+ (NEGATIVE)
[2020-11-11 23:31] VITALS: BP 164/83
== END 2020-11-11 23:32 | disposition home or self-care (01) ==
LOC: ED 18:42
PROVIDERS: Emergency Medicine
DX: L03.116 Cellulitis of left lower limb (principal); R50.9 Fever, unspecified; J45.909 Unspecified asthma, uncomplicated; I10 Essential (primary) hypertension; E11.9 Type 2 diabetes mellitus without complications; Z88.0 Allergy status to penicillin; Z20.828 Contact with and (suspected) exposure to other viral communicable diseases
CPT/HCPCS: J1885